=== PATIENT | female | born 1970 | race Caucasian/White ===

== ENCOUNTER 2017-02-24 11:29 | Outpatient (CLI) | payer OTHER ==
[2017-02-24 11:44] LABS: BASOPHILS % 0.8 (0.0-1.5); MEAN CORPUSCULAR HEMOGLOBIN 27.3 pg (28.0-34.0); MEAN CORPUSCULAR VOLUME 81.8 fl (80.0-100.0); NEUTROPHILS # 3.6 # k/uL (1.4-7.7)
[2017-02-24 12:09] LABS: eGFR (African) > 60; eGFR (Non-African) > 60
[2017-02-24 21:00] LABS: VITAMIN D, 25-HYDROXY 27 ng/mL (30-100)
== END 2017-02-24 11:30 ==
LOC: LAB 11:29
PROVIDERS: ATTEND Family Medicine
DX: E03.9 Hypothyroidism, unspecified (principal); E53.8 Deficiency of other specified B group vitamins; E55.9 Vitamin D deficiency, unspecified; R42 Dizziness and giddiness
CPT/HCPCS: 36415; 80053; 82306; 82607; 84443; 85025

== ENCOUNTER 2017-07-08 16:29 | Outpatient (CLI) | payer OTHER | END 2017-07-08 16:30 | LOC: LABRHC 16:29 | PROVIDERS: ATTEND Physician Assistant | DX: Z12.4 Encounter for screening for malignant neoplasm of cervix (principal) | CPT/HCPCS: 88148; G0143 ==

== ENCOUNTER 2019-02-13 12:00 | Outpatient (CLI) | payer OTHER ==
[2019-02-13 12:23] LABS: BASOPHILS % 0.4 % (0.0-1.5); NEUTROPHILS # 3.7 # k/uL (1.4-7.7)
[2019-02-13 12:33] LABS: eGFR (Non-African) > 60
--- NOTE | 2019-02-15 13:02 | Diagnostic Imaging Report ---
YAZ FLAHERTY [facility] [id number] Formerly [facility], 1929[address] [id number] Report Submission Date: Feb 13, 2019 2:28:31 PM CDT Patient Study Name: HEENA BLACWKELL Date: Feb 13, 2019 12:05:56 PM CDT Modality Type: DX Gender: F Description: ABD COMPLETE : 68 Institution: [facility] Physician: YAZ FLAHERTY Exam: KUB. History: Abdominal pain. No previous studies are available for comparison. Scattered loops of bowel gas in both large and small intestine is noted with a moderate amount of retained fecal material seen in the colon. No organomegaly is seen. No renal calcifications are noted. Surgical clips in the right upper quadrant indicate previous cholecystectomy. Impression: Nonspecific bowel gas pattern. Electronically signed on Feb 13, 2019 2:28:31 PM CDT by: Jarrod WHARTON
== END 2019-02-13 12:03 ==
LOC: LAB 12:00
PROVIDERS: ATTEND Family Medicine
DX: R10.84 Generalized abdominal pain (principal)
CPT/HCPCS: 36415; 74019; 80053; 83690; 85025